=== PATIENT | male | born 1975 ===

== ENCOUNTER 2017-12-20 15:12 | Outpatient (CLI) | payer OTHER ==
--- NOTE | 2017-12-20 19:28 | Magnetic Resonance Report ---
FINAL REPORT PROCEDURE: MR LUMBAR SPINE WO/W CON TECHNIQUE: Magnetic resonance imaging of the lumbar spine was performed using standard pulse sequences before and after the IV injection of paramagnetic contrast. CPT 89533 HISTORY: PAIN IN HIPS AND LOWER BACK COMPARISON: No prior studies are available for comparison. FINDINGS: The signal intensity and height of the vertebral bodies appears normal. No fracture or subluxation is visualized. Conus appears normal. No mass is visualized. The cord appropriately terminates at T12-L1 disc space. L1-2: No significant abnormality . L2-3: No significant abnormality . L3-4: Degenerative signal is seen in the disc. A small linear band of increased T2 signal is seen in the posterior annulus to the left of midline consistent with a tear in the annulus. There is a mild asymmetric disc bulge slightly greater to the left than the right. This projects into the neural foramina bilaterally left greater than right. I cannot exclude mild compression of the exiting left L3 nerve root. The neural foramina on the right appears adequate L4-5: Degenerative signal is seen in the disc. A small linear band of increased T2 signal is seen in the posterior annulus to the left of midline consistent with a tear in the annulus. There is a mild diffuse disc bulge present without focal disc herniation or spinal stenosis. The disc does bulge into the neural foramina bilaterally however the foramina appear adequate.. L5-S1: No significant abnormality . Other: None . IMPRESSION: Mild degenerative disc changes visualized L3-4 and L4-5 disc spaces. Small tears are seen in the annulus posteriorly as described. There are mild disc bulges without focal disc herniation. I cannot exclude mild compression of the exiting left L3 nerve root. No fracture or subluxation is visualized.
--- NOTE | 2017-12-20 19:42 | Magnetic Resonance Report ---
FINAL REPORT PROCEDURE: MR THORACIC SPINE WO/W CON TECHNIQUE: Magnetic resonance imaging of the thoracic spine was performed using standard pulse sequences before and after the IV injection of paramagnetic contrast. CPT 76042 HISTORY: PAIN IN HIPS AND LOWER BACK COMPARISON: No prior studies are available for comparison. FINDINGS: The signal intensity and height of the vertebral bodies appears normal. No fracture or subluxation is visualized. There is mild to moderate thoracic scoliosis convex to the right apex at approximately T9. the signal intensity and caliber of the cord appears normal. There is a mild disc bulge at the T3-T4 level to the left of midline obscuring a portion the anterior epidural space without definite cord compression or spinal stenosis. Disc spaces otherwise are unremarkable. The neural foramina bilaterally appear adequate. IMPRESSION: Minimal disc bulge T3-T4 level. Mild to moderate thoracic scoliosis. No fracture or subluxation is visualized.
--- NOTE | 2017-12-20 22:14 | Magnetic Resonance Report ---
FINAL REPORT EXAM: MR CERVICAL SPINE WO/W CON HISTORY: PAIN IN HIPS AND LOWER BACK TECHNIQUE: MRI was performed of the cervical spine using the following pulse sequences: Axial: T1, T2, fat-suppressed gadolinium-enhanced T1 Sagittal: T1, T2, STIR, fat-suppressed gadolinium-enhanced T1. PRIORS: None. FINDINGS: The vertebral bodies have normal height and alignment. There is mild straightening of cervical lordosis. The paraspinous soft tissues are unremarkable. The cervical cord has a normal signal intensity and appearance. The craniocervical junction is unremarkable. After gadolinium administration there are no abnormal areas of enhancement. C2-3: No significant degenerative changes. No spinal or foraminal stenosis. C3-4: Medium-size posterior osteophyte disc complex and bilateral uncovertebral hypertrophy. Mild spinal stenosis. Mild bilateral neural foraminal narrowing. C4-5: Medium sized posterior osteophyte disc complex. Mild spinal stenosis. No foraminal narrowing. C5-6: Small posterior osteophyte disc complex. Moderate mild spinal stenosis. No foraminal narrowing. C6-7: Medium sized posterior osteophyte disc complex. Bilateral uncovertebral hypertrophy with mild right foraminal narrowing. Mild spinal stenosis. C7-T1: No significant degenerative changes. No spinal or foraminal stenosis. IMPRESSION: Multilevel degenerative disc disease. Please see the full description of findings above.
== END 2017-12-20 15:13 | disposition home or self-care (01) ==
LOC: MRI 15:12
PROVIDERS: ATTEND Specialist
DX: M48.02 Spinal stenosis, cervical region (principal); M41.84 Other forms of scoliosis, thoracic region; M51.36 Other intervertebral disc degeneration, lumbar region; M47.896 Other spondylosis, lumbar region
CPT/HCPCS: 72156; 72157; 72158; A9577